=== PATIENT | male | born 1985 | race Caucasian/White ===

== ENCOUNTER 2020-07-30 16:42 | Emergency (ER) | payer SELFPAY ==
[2020-07-30 17:01] VITALS: BP 143/83; PULSE 111; RESP 18; TEMP 37.1; O2SAT 98
--- NOTE | 2020-07-30 17:14 | ED.EXTPRO ---
HPI - Extremity Problem General Chief complaint: Extremity Problem,Nontraumatic Stated complaint: Right swollen leg Source: patient Mode of arrival: ambulatory Limitations: no limitations History of Present Illness HPI Narrative: This is a 34-year-old male presents with right lower extremity erythema mild swelling with no calf pain or tenderness no fever chills, the patient was seen at another facility and was prescribed antibiotics but apparently after filling the antibiotics he he lost his prescription and is here for another prescription. The area on his right lower extremity on his right lower leg has expanded with erythema warmth and tenderness. MD Complaint: extremity pain and extremity swelling Onset (ago): day(s) Pain Consistency: constant Location: right Severity scale (1-10): 2 Quality: aching Radiation: none Relieving factors: nothing Exacerbating factors: nothing Associated symptoms: denies other symptoms Related Data Allergies Allergy/AdvReac Type Severity Reaction Status Date / Time No Known Allergies Allergy Verified 07/30/20 17:00 Review of Systems Review of Systems: All systems reviewed & are unremarkable except as noted in HPI and below PMFSH Past Medical History Medical History Patient denies medical problems Exam Const: General: no acute distress Orientation/consciousness: patient oriented x3 HENMT: Head: normal to inspection Eyes: Conjunctivae: conjunctivae normal Pupils: Equal, round and reactive pupils present EOM: EOMs intact bilaterally Direct Ophthalmoscopy: no photophobia Neck: Neck: normal visual inspection, no lymphadenopathy and no meningeal signs Chest: Chest palpation & inspection: normal inspection of the chest Resp: Effort & Inspection: normal respiratory effort Cardio: Rate: regular rate Rhythm: regular rhythm GI: GI Palp: Yes Soft to palpation Urinary Catheter: Urinary Catheter: patent and draining Back/Spine/Pelvis: Back: no CVA tenderness Skin: Other: area of erythema right lower extremity approximately 5cm in diameter that is warm and tender Neuro: General: patient oriented x3 and moves all extremities Extrem: General: normal to inspection and edema Psych: Appearance: grossly normal Mental Status: mental status grossly normal Affect: normal affect Course Course Emergency Course: patient with some right lower leg redness and erythema will give the patient a dose of IM 1 g ceftriaxone and will call in his prescription of Augmentin to his pharmacy. Vital Signs Vital signs: Vital Signs Temperature 37.1 C 07/30/20 17:01 Pulse Rate 111 H 06/05/21 17:01 Respiratory Rate 18 07/30/20 17:01 Blood Pressure 143/83 H 07/30/20 17:01 Pulse Oximetry 98 07/30/20 17:01 Temperature 37.1 C 07/30/20 17:01 Pulse Rate 111 H 07/30/20 17:01 Respiratory Rate 18 07/30/20 17:01 Blood Pressure 143/83 H 07/30/20 17:01 Pulse Oximetry 98 07/30/20 17:01 Critical Care Time Critical Care Time Critical Care Time: No Discharge Plan Discharge Clinical Impression: Cellulitis Qualifiers: Site of cellulitis: extremity Site of cellulitis of extremity: lower extremity Laterality: right Qualified Code(s): L03.115 - Cellulitis of right lower limb Patient Disposition: Home, Self-Care Condition: Stable Instructions: Antibiotic Form, Cellulitis (ED) Additional Instructions: advised to take medicine as prescribed and follow-up primary care physician within 1 to 2 weeks further evaluation and treatment. Prescriptions: New amoxicillin-pot clavulanate [Augmentin] 875-125 mg tablet 1 tablet PO Q12H Qty: 20 RF: 0 Follow-up/Referrals: UNKNOWN,DOCTOR [Primary Care Provider] - Time of Disposition: :18
[2020-07-30] MEDS: cefTRIAXone 1 GM VIAL IM (17:44)
== END 2020-07-30 18:07 | disposition home or self-care (01) ==
PROVIDERS: Emergency Provider Emergency Medicine
DX: L03.115 Cellulitis of right lower limb (principal)
CPT/HCPCS: 96372; 99283; J0696